=== PATIENT | female | born 1970 | race Caucasian/White ===

== ENCOUNTER 2019-04-27 11:30 | Emergency (ER) | payer OTHER ==
[~2019-04-27] VITALS: Ht 162.6 cm; Wt 97.5 kg
--- OUTSIDE RECORDS SUMMARY | 2019-04-27 11:33 | XMS REPORT ---
[facility] Address Unknown Phone Unavailable Care Team Providers Care Director Of Labor And Delivery Name Role Phone Nga BARTH Unavailable Unavailable Problems This patient has no known problems. Allergies, Adverse Reactions, Alerts This patient has no known allergies or adverse reactions. Medications This patient has no known medications. Results Test Description Test Time Test Comments Text Results Atomic Results Result Comments CT ABDOMEN/PELVIS WO 2018-10-06 13:48:00 [place] [address] Patient Name: VALENCIA BRIDGES MR #: [id number] : 1970 Age/Sex: 48/F Req #: [id number] Adm Physician: Ordered by: PHILIPP ARORA OYSTER SHUCKER Report #: [id number] Location: ER Room/Bed: Procedure: [id number] CT/CT ABDOMEN/PELVIS WO Exam Date: Exam Time: REPORT STATUS: Signed EXAM: CT Abdomen and Pelvis WITHOUT contrast INDICATION: Pain COMPARISON: None. TECHNIQUE: Abdomen and Pelvis was scanned utilizing a multidetector helical scanner without the use of IV contrast. Coronal and sagittal reformations were obtained. IV CONTRAST: None COMPLICATIONS: None RADIATION DOSE: Total DLP: 734 mGy*cm Estimated effective dose: (DLP x 0.015 x size factor) mSv CTDIvol has been reviewed. It is below the limits set by the Radiation Protocol Committee (RPC). Appropriate CT dose reduction techniques were utilized. FINDINGS: Abdomen: Lung Bases: Minimal basilar opacities statistically atelectasis. Solid Organs: Presumed peripelvic cysts left kidney. Otherwise, nonenhanced images liver, adrenals, kidneys, spleen, and pancreas unremarkable. No renal or ureteral calculi. Upper GI Tract: No small bowel obstructive changes. Vascularity: Minimal vascular calcifications. No aortic aneurysm. Lymph Nodes: No suspicious adenopathy. Other: None. Pelvis: Bladder: Decompressed, limiting evaluation. Other: Uterus/adnexa grossly unremarkable within limitations of nonenhanced CT. Colon: Diverticulosis descending and sigmoid colon with moderate inflammatory changes distal descending colon. No evidence of abscess or perforation. Bones: No acute osseous findings. Multiple injection granulomata. IMPRESSION: 1. Diverticulitis without evidence of abscess or perforation. 2. Multiple injection granulomata. 3. Other findings as above. Signed by: Dr. Davian Nguyen MD on 10/06/2018 1:55 PM Dictated By: DAVIAN NGUYEN MD [id number] Transcribed By: GRAHAM on 10/06/18 [id number] COPY TO: PHILIPP ARORA NP
--- OUTSIDE RECORDS SUMMARY | 2019-04-27 11:33 | XMS REPORT | Clinical Summary ---
Author Author [facility] Address Unknown Phone Unavailable Care Team Providers Care Signals Collector/Analyst Name Role Phone Kristin Fish PCP Allergies Comments Active Allergy Reactions Severity Noted Date Phenytoin Sodium Extended Shortness Of High 07/12/2017 Breath Medications No known medications Active Problems Not on file Social History Date Tobacco Use Types Packs/Day Years Used Never Assessed Sex Assigned at Date Recorded Not on file Industry Job Start Date Occupation Not on file Not on file Not on file Travel End Travel History Travel Start No recent travel history available. Last Filed Vital Signs Not on file Plan of Treatment Health Maintenance Due Date Last Done Comments BREAST CANCER SCREENING 2018 08/17/2012 COLON CANCER SCREENING 2018 SHINGLES VACCINES (#1) 2018 INFLUENZA VACCINE 06/27/2019 Results Not on fileafter 04/26/2018 Insurance Type Payer Benefit Subscriber ID Effective Phone Address Plan / Dates Group PPO [facility] xxxxxxxxx 2013- [employer] Present PPO- [address] (Home) [place] [address] Advance Directives Patient has advance care planning documents on file. For more information, pleas e contact: G[facility] [address] [place] [address]
[2019-04-27 12:21] LABS: BASOPHILS % 0.7 % (0.0-1.0); EOSINOPHILS # (AUTO) 0.1 (0.0-0.4); EOSINOPHILS % 1.2 % (0.0-6.0); HEMOGLOBIN 14.9 g/dL (12.0-16.0); LYMPHOCYTES # (AUTO) 2.5 (1.0-3.2); LYMPHOCYTES % 43.2 % (18.0-39.1); MEAN CORPUSCULAR HEMOGLOBIN 31.4 pg (28-32); MEAN CORPUSCULAR HGB CONC 35.5 g/dL (31-35); MEAN CORPUSCULAR VOLUME 88.4 fL (81-99); MONOCYTES # (AUTO) 0.5 (0.2-0.8); MONOCYTES % 8.2 % (4.4-11.3); NEUTROPHILS # (AUTO) 2.7 (2.1-6.9); NEUTROPHILS % 46.5 % (38.7-80.0); PLATELET COUNT 249 x10e3/uL (140-360); RED BLOOD COUNT 4.75 x10e6/uL (3.6-5.1)
[2019-04-27 12:41] LABS: ALANINE AMINOTRANSFERASE 24 IU/L (0-55); ALBUMIN 3.8 g/dL (3.5-5.0); ALBUMIN/GLOBULIN RATIO 1.1 (0.8-2.0); ALKALINE PHOSPHATASE 114 IU/L (40-150); ANION GAP 11.2 mmol/L (8-16); BLOOD UREA NITROGEN 15 mg/dL (7-26); BUN/CREATININE RATIO 19 (6-25); CALCIUM 9.9 mg/dL (8.4-10.2); CARBON DIOXIDE 26 mmol/L (22-29); CHLORIDE 105 mmol/L (98-107); CREATININE, SERUM 0.81 mg/dL (0.57-1.11); EST GLOMERULAR FILTRATION RATE > 60 ML/MIN (60-); GLUCOSE 98 mg/dL (74-118); LIPASE 12 U/L (8-78); POTASSIUM 4.2 mmol/L (3.5-5.1); SODIUM 138 mmol/L (136-145)
[2019-04-27 13:17] LABS: BILIRUBIN,URINE NEGATIVE (NEGATIVE); CLARITY,URINE SL CLOUDY (CLEAR); COLOR,URINE YELLOW (YELLOW); KETONES,URINE NEGATIVE (NEGATIVE); LEUKOCYTE ESTERASE ,URINE TRACE (NEGATIVE); NITRITE,URINE NEGATIVE (NEGATIVE); PROTEIN,URINE DIPSTICK NEGATIVE (NEGATIVE); URINE UROBILINOGEN 0.2 mg/dL (0.2 - 1)
[2019-04-27 14:05] LABS: BACTERIA,URINE RARE /HPF; EPITHELIAL CELLS,URINE FEW /LPF
== END 2019-04-27 14:00 | disposition home or self-care (01) ==
LOC: ER 11:30
DX: R10.30 Lower abdominal pain, unspecified (principal); R11.0 Nausea; E03.9 Hypothyroidism, unspecified
CPT/HCPCS: 36415; 80053; 81001; 83690; 85025; 87086; 99283

== ENCOUNTER 2021-08-07 16:04 | Emergency (ER) | payer OTHER ==
[~2021-08-07] VITALS: Ht 154.9 cm; Wt 88.5 kg
[2021-08-07] MEDS ORDERED: CASIRIVIMAB/IMDEVIMAB 10 ML in SODIUM CHLORIDE 0.9% 100 ML IV ONE (16:30)
== END 2021-08-07 17:56 | disposition home or self-care (01) ==
LOC: ER 16:29
DX: R05 Cough (principal); R53.81 Other malaise; U07.1 COVID-19
CPT/HCPCS: 99283; J7050

== ENCOUNTER 2021-08-09 15:43 | Inpatient (IN) | payer OTHER ==
[~2021-08-09] VITALS: Ht 152.4 cm; Wt 88.5 kg
[2021-08-09] MEDS ORDERED: SODIUM CHLORIDE FLUSH 10 ML SYR INJ PRN (16:00)
[2021-08-09] MEDS ORDERED: REMDESIVIR 200MG 200 MG in SODIUM CHLORIDE 0.9% 100 ML IV ONE (16:30)
[2021-08-09 16:57] LABS: CREATINE KINASE 130 IU/L (29-168)
[2021-08-09] MEDS: ASCORBIC ACID 500 MG TAB PO SCH (17:44)
[2021-08-09] MEDS: DEXAMETHASONE SOD PHOS 10 MG/1 ML VIAL IV SCH (17:44)
[2021-08-09 20:00] VITALS: BP 144/92
[2021-08-09] MEDS: HEPARIN SOD (PORCINE) 5,000 UNIT/ML VIAL SC SCH (21:00)
[2021-08-09 22:43] VITALS: BP 144/92
[2021-08-09 22:46] VITALS: BP 144/92
[2021-08-09] MEDS ORDERED: KEPPRA500 MG PO (22:56)
[2021-08-09] MEDS ORDERED: SINGULAIR10 MG PO (22:56)
[2021-08-09] MEDS ORDERED: REQUIP3 MG PO (22:56)
[2021-08-10] VITALS (9 sets, daily range): BP systolic 122–144; BP diastolic 78–88
[2021-08-10] MEDS ORDERED: CHLORASEPTIC SPRAY 177 ML BTL MM PRN (01:00)
[2021-08-10] MEDS ORDERED: MELATONIN 5 MG TABLET PO PRN (01:00)
[2021-08-10] MEDS ORDERED: DOCUSATE SODIUM 100 MG CAP PO PRN (01:00)
[2021-08-10] MEDS ORDERED: PHENAZOPYRIDINE HCL 100 MG TAB PO PRN (01:00)
[2021-08-10] MEDS ORDERED: ALBUTEROL/IPRATROPIUM 3 ML NEB NEB PRN (01:00)
[2021-08-10] MEDS ORDERED: POTASSIUM CHLORIDE 20 MEQ TAB CR PO PRN (01:00)
[2021-08-10] MEDS ORDERED: DIPHENHYDRAMINE HCL 25 MG CAP PO PRN (01:00)
[2021-08-10] MEDS ORDERED: GUAIFENESIN/CODEINE 10 ML CUP PO PRN (01:00)
[2021-08-10] MEDS ORDERED: ONDANSETRON HCL INJ 2MG/ML 2ML 2 MG/ML VIAL IV PRN (01:00)
[2021-08-10] MEDS ORDERED: HYDRALAZINE HCL 20 MG/ML VIAL IV PRN (01:00)
[2021-08-10] MEDS ORDERED: SIMETHICONE 80 MG CHEW PO PRN (01:00)
[2021-08-10] MEDS ORDERED: DEXTROSE 50% SYRINGE 50 ML IV PRN (01:00)
[2021-08-10] MEDS: ROPINIROLE HCL 2 MG TAB PO SCH ×2 (01:38→20:36)
[2021-08-10] MEDS: PANTOPRAZOLE SOD 40 MG TABEC PO SCH (08:16)
[2021-08-10] MEDS: DEXAMETHASONE SOD PHOS 10 MG/1 ML VIAL IV SCH (08:56)
[2021-08-10] MEDS: ASCORBIC ACID 500 MG TAB PO SCH ×2 (08:56→16:19)
[2021-08-10] MEDS: ZINC SULFATE 220 MG CAP PO SCH (08:57)
[2021-08-10] MEDS ORDERED: DEXAMETHASONE 10MG/ML PF INJ IV ONE (09:00)
[2021-08-10 09:08] LABS: BASOPHILS % 0.2 % (0.0-1.0); HEMOGLOBIN 11.9 g/dL (12.0-16.0); LYMPHOCYTES # (AUTO) 0.9 (1.0-3.2); LYMPHOCYTES % 20.4 % (18.0-39.1); MEAN CORPUSCULAR HEMOGLOBIN 29.9 pg (28-32); MEAN CORPUSCULAR HGB CONC 33.1 g/dL (31-35); MEAN CORPUSCULAR VOLUME 90.5 fL (81-99); MONOCYTES # (AUTO) 0.4 (0.2-0.8); MONOCYTES % 7.8 % (4.4-11.3); NEUTROPHILS # (AUTO) 3.1 (2.1-6.9); NEUTROPHILS % 69.6 % (38.7-80.0); PLATELET COUNT 141 x10e3/uL (140-360); RED BLOOD COUNT 3.98 x10e6/uL (3.6-5.1)
[2021-08-10 09:24] LABS: ALBUMIN 2.7 g/dL (3.5-5.0); ALBUMIN/GLOBULIN RATIO 0.6 (0.8-2.0); ANION GAP 14.6 mmol/L (8-16); CREATININE, SERUM 0.71 mg/dL (0.57-1.11); POTASSIUM 4.6 mmol/L (3.5-5.1)
[2021-08-10 09:52] LABS: CREATINE KINASE 170 IU/L (29-168)
[2021-08-10] MEDS: HEPARIN SOD (PORCINE) 5,000 UNIT/ML VIAL SC SCH ×2 (11:27→20:36)
[2021-08-10 15:54] LABS: CREATINE KINASE MB 1.3 ng/mL (0-5.0)
[2021-08-10] MEDS: REMDESIVIR 100MG 100 MG in SODIUM CHLORIDE 0.9% 100 ML IV SCH (16:19)
[2021-08-10] MEDS: LEVETIRACETAM 500 MG TAB PO SCH (20:36)
[2021-08-10] MEDS: MONTELUKAST SODIUM 10 MG TAB PO SCH (20:36)
[2021-08-11 01:50] VITALS: BP 127/86
[2021-08-11] MEDS: ACETAMINOPHEN 325 MG TAB PO PRN ×2 (01:58→22:02)
[2021-08-11 05:14] VITALS: BP 128/87
[2021-08-11 06:29] LABS: BASOPHILS % 0.2 % (0.0-1.0); EOSINOPHILS # (AUTO) 0.1 (0.0-0.4); EOSINOPHILS % 0.9 % (0.0-6.0); HEMATOCRIT 33.6 % (34.2-44.1); HEMOGLOBIN 11.1 g/dL (12.0-16.0); LYMPHOCYTES # (AUTO) 1.3 (1.0-3.2); LYMPHOCYTES % 19.4 % (18.0-39.1); MEAN CORPUSCULAR VOLUME 90.8 fL (81-99); MONOCYTES # (AUTO) 0.6 (0.2-0.8); MONOCYTES % 8.6 % (4.4-11.3); NEUTROPHILS # (AUTO) 4.5 (2.1-6.9); NEUTROPHILS % 69.4 % (38.7-80.0); PLATELET COUNT 160 x10e3/uL (140-360); RED CELL DISTRIBUTION WIDTH 12.1 % (11.7-14.4)
[2021-08-11 07:00] LABS: ANION GAP 14.4 mmol/L (8-16); CALCIUM 9.2 mg/dL (8.4-10.2); CREATININE, SERUM 0.82 mg/dL (0.57-1.11); POTASSIUM 4.4 mmol/L (3.5-5.1)
[2021-08-11] MEDS: ASCORBIC ACID 500 MG TAB PO SCH ×2 (08:26→17:02)
[2021-08-11] MEDS: PANTOPRAZOLE SOD 40 MG TABEC PO SCH (08:26)
[2021-08-11] MEDS: ZINC SULFATE 220 MG CAP PO SCH (08:26)
[2021-08-11] MEDS: DEXAMETHASONE SOD PHOS 10 MG/1 ML VIAL IV SCH (08:26)
[2021-08-11] MEDS: HEPARIN SOD (PORCINE) 5,000 UNIT/ML VIAL SC SCH ×2 (08:27→20:32)
[2021-08-11 08:39] VITALS: BP 133/89
[2021-08-11 12:28] VITALS: BP 127/84
[2021-08-11] MEDS: REMDESIVIR 100MG 100 MG in SODIUM CHLORIDE 0.9% 100 ML IV SCH (17:02)
[2021-08-11 20:00] VITALS: BP 134/81
[2021-08-11] MEDS: ROPINIROLE HCL 2 MG TAB PO SCH (20:31)
[2021-08-11] MEDS: LEVETIRACETAM 500 MG TAB PO SCH (20:31)
[2021-08-11] MEDS: MONTELUKAST SODIUM 10 MG TAB PO SCH (20:32)
[2021-08-11 21:00] VITALS: BP 134/81
[2021-08-12] VITALS (7 sets, daily range): BP systolic 121–150; BP diastolic 80–99
[2021-08-12] MEDS: PANTOPRAZOLE SOD 40 MG TABEC PO SCH (07:30)
[2021-08-12] MEDS: ZINC SULFATE 220 MG CAP PO SCH (08:42)
[2021-08-12] MEDS: ASCORBIC ACID 500 MG TAB PO SCH ×2 (08:42→16:42)
[2021-08-12] MEDS: DEXAMETHASONE SOD PHOS 10 MG/1 ML VIAL IV SCH (08:42)
[2021-08-12] MEDS: HEPARIN SOD (PORCINE) 5,000 UNIT/ML VIAL SC SCH ×2 (09:00→20:25)
[2021-08-12] MEDS: ACETAMINOPHEN 325 MG TAB PO PRN ×2 (09:56→20:40)
[2021-08-12] MEDS: REMDESIVIR 100MG 100 MG in SODIUM CHLORIDE 0.9% 100 ML IV SCH (16:42)
[2021-08-12] MEDS: ROPINIROLE HCL 2 MG TAB PO SCH (20:25)
[2021-08-12] MEDS: LEVETIRACETAM 500 MG TAB PO SCH (20:25)
[2021-08-12] MEDS: MONTELUKAST SODIUM 10 MG TAB PO SCH (20:25)
[2021-08-13] VITALS (7 sets, daily range): BP systolic 113–144; BP diastolic 78–88
[2021-08-13] MEDS: PANTOPRAZOLE SOD 40 MG TABEC PO SCH (08:28)
[2021-08-13] MEDS: ASCORBIC ACID 500 MG TAB PO SCH ×2 (08:28→16:14)
[2021-08-13] MEDS: DEXAMETHASONE SOD PHOS 10 MG/1 ML VIAL IV SCH (08:28)
[2021-08-13] MEDS: ZINC SULFATE 220 MG CAP PO SCH (08:28)
[2021-08-13] MEDS: HEPARIN SOD (PORCINE) 5,000 UNIT/ML VIAL SC SCH (08:29)
[2021-08-13] MEDS: REMDESIVIR 100MG 100 MG in SODIUM CHLORIDE 0.9% 100 ML IV SCH (16:14)
[2021-08-13] MEDS ORDERED: ONDANSETRON HCL 4 MG ORAL DISINTEGRATING TAB PO PRN (19:30)
[2021-08-14] MEDS ORDERED: AZITHROMYCIN 250 MG TAB PO SCH (17:00)
== END 2021-08-13 21:52 | disposition home or self-care (01) | DRG 177 ==
LOC: ER 15:51 → ERHOLD 16:57 → MED/SURG3 19:44
PROVIDERS: ADMIT Internal Medicine; ATTEND Internal Medicine
PROC: 3E0333Z Introduction of Anti-inflammatory into Peripheral Vein, Percutaneous Approach (ICD-10-PCS; principal; 2021-08-09)
PROC: XW033E5 Introduction of Remdesivir Anti-infective into Peripheral Vein, Percutaneous Approach, New Technology Group 5 (ICD-10-PCS; 2021-08-09)
DX: U07.1 COVID-19 (principal); J96.01 Acute respiratory failure with hypoxia; J12.82 Pneumonia due to coronavirus disease 2019; E03.9 Hypothyroidism, unspecified; Z85.841 Personal history of malignant neoplasm of brain; G40.909 Epilepsy, unspecified, not intractable, without status epilepticus; Z88.8 Allergy status to other drugs, medicaments and biological substances; E66.9 Obesity, unspecified; Z68.38 Body mass index [BMI] 38.0-38.9, adult; J45.20 Mild intermittent asthma, uncomplicated; R53.81 Other malaise
CPT/HCPCS: 36415; 71045; 80048; 80053; 82550; 82553; 83735; 84484; 85025; 93005; 99284; J0456; J1100; J1644; J7050; U0002